=== PATIENT | female | born 1970 | race Caucasian/White ===

== ENCOUNTER → 2016-11-21 | Outpatient (CLI) | payer OTHER ==
--- NOTE | 2016-11-21 13:04 | REP ---
Clinical: Pelvic pain and abnormal uterine bleeding. Comparison: 07/28/2010 Technique: Transabdominal pelvic ultrasound followed by transvaginal examination for better evaluation of the endometrium and adnexa. Findings: Bladder is unremarkable and measures 8.2 x 7.9 x 10.4 cm . Anteverted known didelphic uterus measures 7.6 x 4.3 x 5.9 cm to the right cornua and 7.4 x 4.3 x 5.9 cm to the left cornua. The endometrial complex measures 4.7 mm thick to the right endometrial complex and 3.6 mm thick to the left endometrial complex. No acute uterine or endometrial abnormalities are appreciated. Echogenic foci within the right endometrial complex unchanged from prior examination. Bilateral ovaries are normal in appearance and vascularity without evidence for torsion. Right ovary measures 2.1 x 1.2 x 2.2 cm. Left ovary measures 2.8 x 1.5 x 2.0 cm with 1.2 cm dominant follicle. No pelvic fluid or adnexal mass lesion. Impression: 1. Known didelphic uterus appears essentially normal and stable compared to prior examination. 2. No acute uterine or ovarian abnormalities appreciated. Signed by Keo Yates MD 11/21/2016 12:55 P
== END ==
LOC: M RAD 12:13
PROVIDERS: ATTEND Physician Assistant
DX: N93.8 Other specified abnormal uterine and vaginal bleeding (principal); Q51.2 Other doubling of uterus

== ENCOUNTER → 2016-11-26 | Outpatient (CLI) | payer OTHER ==
[2016-11-26 12:54] LABS: BASO % 0.7 % (0.0-1.0); EOS # 0.1 K/mm3 (0.0-0.50); EOS % 2.1 % (0.0-3.0); LARGE UNSTAINED CELL # 0.1 K/mm3 (0.0-0.4); LARGE UNSTAINED CELL % 1.5 % (0.0-4.0); LYMPH # 2.2 K/mm3 (1.5-4.5); LYMPH % 32.9 % (24.0-44.0); MEAN CORPUSCULAR HEMOGLOBIN 31.1 pg (27.0-33.0); MEAN CORPUSCULAR HGB CONC 32.2 g/dl (32.0-36.5); MEAN CORPUSCULAR VOLUME 96.7 fl (80.0-96.0); MONO # 0.4 K/mm3 (0.0-0.8); MONO % 6.2 % (0.0-5.0); NEUTROPHILS # 3.7 K/mm3 (1.8-7.7); NEUTROPHILS % 56.6 % (36.0-66.0); PLATELET COUNT, AUTOMATED 227 k/mm3 (150-450); RED CELL DISTRIBUTION WIDTH 13.2 % (11.5-14.5); WHITE BLOOD COUNT 6.5 K/mm3 (4.0-10.0)
[2016-11-26 13:16] LABS: ANION GAP 8 MEQ/L (8-16); BLOOD UREA NITROGEN 14 MG/DL (7-18); CARBON DIOXIDE LEVEL 27 MEQ/L (21-32); CHLORIDE LEVEL 105 MEQ/L (98-107); CREATININE FOR GFR 0.99 MG/DL (0.55-1.02); GLOMERULAR FILTRATION RATE > 60.0 (>58); GLUCOSE, FASTING 82 MG/DL (70-105); HCG, SERUM QUANTITATIVE < 1.0 MIU/ML; POTASSIUM SERUM 4.2 MEQ/L (3.5-5.1); SODIUM LEVEL 140 MEQ/L (136-145)
--- NOTE | 2016-11-26 13:48 | ECGEPIP ---
Stationary ECG Study [facility] Test Date: 2016-11-26 Pat Name: CORAZON SAUCEDO Department: Room: - Gender: F Business Analyst: GLORIA : 1970 Requested By: Keo Willard Order Number: [id number] Reading MD: Jason Cespedes Measurements Intervals [place] Rate: 55 P: 16 UT: 139 QRS: 88 QRSD: 90 T: 75 QT: 423 QTc: 405 Interpretive Statements SINUS BRADYCARDIA Longer UT interval compared with 11/19/2014. Electronically Signed On 11-26-2016 13:47:51 EDT by Jason Cespedes
== END ==
LOC: M LAB 11:42
PROVIDERS: ATTEND Obstetrics & Gynecology
DX: N92.0 Excessive and frequent menstruation with regular cycle (principal); Z01.810 Encounter for preprocedural cardiovascular examination

== ENCOUNTER → 2017-03-07 | Outpatient (REF) | LOC: M EMP 20:03 | PROVIDERS: ATTEND Physician Assistant | DX: Z02.1 Encounter for pre-employment examination (principal) ==

== ENCOUNTER → 2018-12-25 | Outpatient (REF) | payer OTHER ==
[2018-12-25 19:34] LABS: BASO # 0.1 10^3/uL (0.0-0.2); BASO % 0.8 % (0.0-1.0); EOS # 0.1 10^3/uL (0.0-0.50); EOS % 1.1 % (0.0-3.0); HEMATOCRIT 38.3 % (36.0-47.0); HEMOGLOBIN 12.9 g/dl (12.0-15.5); LYMPH # 3.1 10^3/uL (1.5-4.5); LYMPH % 35.7 % (24.0-44.0); MEAN CORPUSCULAR HEMOGLOBIN 32.8 pg (27.0-33.0); MEAN CORPUSCULAR HGB CONC 33.7 g/dl (32.0-36.5); MEAN CORPUSCULAR VOLUME 97.5 fl (80.0-96.0); MONO # 0.6 10^3/uL (0.0-0.8); MONO % 7.2 % (0.0-5.0); NEUTROPHILS # 4.8 10^3/uL (1.8-7.7); NEUTROPHILS % 54.7 % (36.0-66.0); PLATELET COUNT, AUTOMATED 283 10^3/uL (150-450); RED BLOOD COUNT 3.93 10^6/uL (4.00-5.40); WHITE BLOOD COUNT 8.8 10^3/uL (4.0-10.0)
[2018-12-25 19:45] LABS: ALBUMIN 4.1 GM/DL (3.2-5.2); CALCIUM LEVEL 9.1 MG/DL (8.5-10.1); CHOLESTEROL RISK RATIO 2.282 (<5); CREATININE FOR GFR 1.06 MG/DL (0.55-1.30); FREE T4 0.95 NG/DL (0.76-1.46); GLOMERULAR FILTRATION RATE 58.9 (>58); THYROID STIMULATING HORMONE 0.747 uIU/ML (0.358-3.740); TOTAL PROTEIN 7.5 GM/DL (6.4-8.2)
== END ==
LOC: M LAB REF 18:56 → M LABDRWAD 18:56
PROVIDERS: ATTEND Physician Assistant
DX: R00.1 Bradycardia, unspecified (principal)

== ENCOUNTER → 2020-06-06 | Outpatient (CLI) | payer OTHER ==
--- NOTE | 2020-06-09 10:47 | REP ---
PELVIC SONOGRAPHY HISTORY: Irregular menstrual bleeding. Additional history provided that the patient has two cervices and two uteruses. COMPARISON: Made with pelvic sonography from 11/21/2016. FINDINGS: Transabdominal and transvaginal scanning are performed. The patient has known uterus didelphys. Overall uterine dimensions are 8.9 x 5.0 x 5.6 cm. The right endometrium is 0.7 and the left 1.1 cm in thickness. There is minimal free fluid. Uterine texture is some heterogeneous. A 2.4 cm hypoechoic area in the left uterus may be a small fibroid. A normal right ovary is seen 1.7 x 1.3 x 1.5 cm in dimension. Doppler flow is present in the right ovary, resistive index 0.56. The left ovary measures 3.3 x 1.8 x 3.1 cm. It contains a 1.9 x 1.8 x 1.6 cm complex area consistent with complex follicle cyst. Doppler flow is present in the left ovary, resistive index 0.32. IMPRESSION: Didelphys uterus. Question small left-sided fibroid. No significant ovarian lesion. MTDD
== END ==
LOC: M RAD 09:49
PROVIDERS: ATTEND Nurse Practitioner Family
DX: N92.6 Irregular menstruation, unspecified (principal); Q00-Q99 Congenital malformations, deformations and chromosomal abnormalities

== ENCOUNTER → 2021-03-09 | Outpatient (REF) | payer OTHER | LOC: M WUC 11:40 | PROVIDERS: ATTEND Physician Assistant | DX: N39.0 Urinary tract infection, site not specified (principal) ==

== ENCOUNTER → 2021-09-17 | Outpatient (REF) | payer OTHER | LOC: M LAB REF 12:12 | PROVIDERS: ATTEND Physician Assistant Medical | DX: R30.0 Dysuria (principal) ==

== ENCOUNTER → 2022-01-11 | Outpatient (CLI) | payer OTHER | LOC: M RAD 12:27 | PROVIDERS: ATTEND Physician Assistant | DX: M25.562 Pain in left knee (principal) ==

== ENCOUNTER → 2022-01-11 | Outpatient (CLI) | payer OTHER | LOC: M WHC 11:31 | PROVIDERS: ATTEND Physician Assistant | DX: Z13.820 Encounter for screening for osteoporosis (principal) ==

== ENCOUNTER → 2022-05-16 | Outpatient (CLI) | payer OTHER ==
[~2022-05-16] MED LIST: BUPR150T12 PO; GASTROGRAFIN SOLUTION 30ML (Q9963) As Ordered ONE; ISOVUE-370 76% 100ML VIAL As Ordered ONE
== END ==
LOC: M RAD 13:32
PROVIDERS: ATTEND Physician Assistant
DX: Z80.0 Family history of malignant neoplasm of digestive organs (principal)
CPT/HCPCS: 74177; Q9963; Q9967

== ENCOUNTER → 2022-05-27 | Outpatient (CLI) | payer OTHER ==
[~2022-05-27] MED LIST changes: -GASTROGRAFIN SOLUTION 30ML (Q9963) As Ordered ONE; -ISOVUE-370 76% 100ML VIAL As Ordered ONE
== END ==
LOC: M LABSMTC 09:42
PROVIDERS: ATTEND Anesthesiology
DX: Z01.812 Encounter for preprocedural laboratory examination (principal); Z20.822 Contact with and (suspected) exposure to COVID-19

== ENCOUNTER 2022-05-31 07:56 | Day surgery (SDC) | payer OTHER ==
[~2022-05-31] VITALS: Ht 170.2 cm; Wt 66.0 kg
[~2022-05-31 07:56] MED LIST changes: +LIDOCAINE 2% 100MG/5ML SDV (FOR ANES.) As Ordered ONE; +NS 1,000 ML IV ONE; +propofoL 200 MG/20 ML VIAL As Ordered ONE
[2022-05-31] MEDS ORDERED: GLYCOPYRROLATE INJ 0.2 MG/ML 2 ML VIAL As Ordered ONE (09:29)
[2022-05-31] MEDS ORDERED: propofoL 200 MG/20 ML VIAL As Ordered ONE (09:30)
[2022-05-31 09:59] VITALS: BP 110/71
== END 2022-05-31 10:30 | disposition home or self-care (01) ==
LOC: M OPP 07:56
PROVIDERS: ATTEND Surgery
DX: Z12.11 Encounter for screening for malignant neoplasm of colon (principal); Z79.899 Other long term (current) drug therapy; F41.9 Anxiety disorder, unspecified; F32.9 Major depressive disorder, single episode, unspecified; Z85.828 Personal history of other malignant neoplasm of skin; Z80.43 Family history of malignant neoplasm of testis